=== PATIENT | female | born 1985 | race Caucasian/White ===

== ENCOUNTER 2020-04-11 14:48 | Outpatient (REF) | payer BC, SELFPAY ==
--- NOTE | 2020-04-11 15:06 | US_ITS ---
EXAMINATION: US PELVIS COMPLETE CLINICAL INFORMATION: Pelvic and perineal pain. COMPARISON: Pelvic ultrasound 04/23/2017. TECHNIQUE: Transabdominal and transvaginal ultrasound of the pelvis is performed. FINDINGS: The uterus is retroverted and retroflexed measuring 8.2 cm in length, 4.1 cm AP and 6.6 cm in transverse dimension. No focal lesion is seen. Endometrial thickness is 0.3 cm. There is hyperechoic debris seen within the endometrial canal, likely from recent menses. Right ovary measures 2.8 x 2 1.8 x 2.0 cm and volume 10.7 mL. There are small anechoic follicles visualized with a dominant follicle measuring 1.8 x 1.5 cm. Previously right ovary measured 3.0 x 1.4 x 2.3 cm and volume 5.0 mL Left ovary measures 5.1 x 2.0 x 3.0 cm and volume 16.0 mL. There are several small follicles seen. Previously left ovary measured 2.8 x 1.4 x 2.2 cm and volume 4.3 mL. There are prominent uterine vessels seen within bilateral adnexa, likely mild pelvic congestion. There is no free fluid in the cul-de-sac. US/US transvaginal IMPRESSION: Bilateral smaller ovarian follicles with a dominant follicle right ovary. Hyperechoic debris within the endometrial canal, likely from recent menses. The uterus is otherwise unremarkable. Suspect mild pelvic venous congestion.
--- NOTE | 2020-04-11 15:06 | US_ITS ---
EXAMINATION: US PELVIS COMPLETE CLINICAL INFORMATION: Pelvic and perineal pain. COMPARISON: Pelvic ultrasound 04/23/2017. TECHNIQUE: Transabdominal and transvaginal ultrasound of the pelvis is performed. FINDINGS: The uterus is retroverted and retroflexed measuring 8.2 cm in length, 4.1 cm AP and 6.6 cm in transverse dimension. No focal lesion is seen. Endometrial thickness is 0.3 cm. There is hyperechoic debris seen within the endometrial canal, likely from recent menses. Right ovary measures 2.8 x 2 1.8 x 2.0 cm and volume 10.7 mL. There are small anechoic follicles visualized with a dominant follicle measuring 1.8 x 1.5 cm. Previously right ovary measured 3.0 x 1.4 x 2.3 cm and volume 5.0 mL Left ovary measures 5.1 x 2.0 x 3.0 cm and volume 16.0 mL. There are several small follicles seen. Previously left ovary measured 2.8 x 1.4 x 2.2 cm and volume 4.3 mL. There are prominent uterine vessels seen within bilateral adnexa, likely mild pelvic congestion. There is no free fluid in the cul-de-sac. US/US pelvic complete IMPRESSION: Bilateral smaller ovarian follicles with a dominant follicle right ovary. Hyperechoic debris within the endometrial canal, likely from recent menses. The uterus is otherwise unremarkable. Suspect mild pelvic venous congestion.
== END 2020-04-11 14:49 | disposition home or self-care (01) ==
LOC: HO.US 14:48
PROVIDERS: PCP Family Medicine; Visit Provider Advanced Practice Midwife
DX: R10.2 Pelvic and perineal pain (principal)
CPT/HCPCS: 76830; 76856

== ENCOUNTER 2020-09-01 19:10 | Emergency (ER) | payer OTHER, MEDICAID, SELFPAY ==
--- NOTE | ~2020-09-01 | US_ITS ---
EXAMINATION: US OBSTETRICAL ULTRASOUND CLINICAL INFORMATION: 12 weeks with vaginal bleeding COMPARISON: Pelvic ultrasound 04/11/2020. No recent ultrasound available. TECHNIQUE: Ultrasound was performed with both transabdominal endovaginal scanning. FINDINGS: A gestational sac is present within the uterus and a pole is identified with a crown-rump of 0.84 cm which corresponds to a gestational age of 6 weeks and 6 days with an SHAYNE of 04/21/2021. Based upon an early ultrasound performed at another institution (I do not have that study) gestational age would be 12 weeks 1 day. No motion was seen and no heart rate was detected. Cystic areas are present in this subchorionic region. The right ovary measures 2.8 x 1.5 x 2.0 cm and appears unremarkable. Left ovary measures 2.7 x 2.0 x 1.9 cm and appears unremarkable. No free fluid is present in the cul-de-sac US/US OB transvaginal IMPRESSION: A gestational sac is seen with a motionless small pole visible with no heartbeat detected. Subchorionic hemorrhage also appears to be present. This is probably intrauterine demise.
--- NOTE | ~2020-09-01 | US_ITS ---
EXAMINATION: US OBSTETRICAL ULTRASOUND CLINICAL INFORMATION: 12 weeks with vaginal bleeding COMPARISON: Pelvic ultrasound 04/11/2020. No recent ultrasound available. TECHNIQUE: Ultrasound was performed with both transabdominal endovaginal scanning. FINDINGS: A gestational sac is present within the uterus and a pole is identified with a crown-rump of 0.84 cm which corresponds to a gestational age of 6 weeks and 6 days with an SHAYNE of 04/21/2021. Based upon an early ultrasound performed at another institution (I do not have that study) gestational age would be 12 weeks 1 day. No motion was seen and no heart rate was detected. Cystic areas are present in this subchorionic region. The right ovary measures 2.8 x 1.5 x 2.0 cm and appears unremarkable. Left ovary measures 2.7 x 2.0 x 1.9 cm and appears unremarkable. No free fluid is present in the cul-de-sac US/US OB <= 14 weeks fetus IMPRESSION: A gestational sac is seen with a motionless small pole visible with no heartbeat detected. Subchorionic hemorrhage also appears to be present. This is probably intrauterine demise.
[2020-09-01 19:13] VITALS: BP 121/67; PULSE 90; RESP 18; TEMP 36.8; O2SAT 100; BMI 26.9
[2020-09-01 19:47] LABS: UPreg QC Valid YES; Urine Pregnancy POSITIVE (NEGATIVE)
[2020-09-01 19:48] LABS: Appearance Urine CLEAR; Color Urine YELLOW; Glucose Urine UA NEG (NEG); Leukocyte Esterase Urine NEG (NEG); Nitrite Urine NEG (NEG); Urine Blood NEG (NEG); Urine Ketones NEG (NEG); Urine Protein NEG (NEG-TRACE)
[2020-09-01 20:29] LABS: MANUAL DIFF FLAG NO
[2020-09-01 20:35] LABS: Basophils Percent Auto 0.4 % (0-2); Eosinophils Absolute Auto 0.1 X10*3/uL (0.0-0.4); Eosinophils Percent Auto 1.8 % (0-4); Hematocrit 36.3 % (37-47); Hemoglobin 12.3 g/dl (12.0-16.0); Imm Gran Abs Auto 0.04 X10*3/uL (0.00-0.03); Imm Gran Pct Auto 0.6 % (0.0-0.4); Lymphocytes Absolute Auto 2.1 X10*3/uL (1.2-4.9); Lymphocytes Percent Auto 28.5 % (20-40); Mean Corpuscular HGB Conc 33.9 g/dl (31.0-35.0); Mean Corpuscular Hemoglobin 28.6 pg (27.0-33.0); Mean Corpuscular Volume 84.4 fL (80-98); Mean Platelet Volume 9.8 fL (9.4-12.3); Monocytes Absolute Auto 0.4 X10*3/uL (0.1-1.2); Monocytes Percent Auto 6.1 % (2-11); Neutrophils Absolute Auto 4.5 X10*3/uL (2.0-8.3); Neutrophils Percent Auto 62.6 % (45-73); Platelet Count 244 X10*3/uL (160-400); Red Cell Distribution Width 12.6 % (11.0-16.0); White Blood Count 7.2 X10*3/uL (4.8-10.8)
[2020-09-01 20:54] LABS: Alanine Aminotransferase 30 U/L (0-31); Albumin Level 4.4 g/dL (3.5-5.0); Alkaline Phosphatase 52 U/L (39-117); Anion Gap 12 (12-20); Aspartate Amino Transferase 17 U/L (5-31); Bilirubin Total 0.4 mg/dL (0.0-1.0); Blood Urea Nitrogen 9 mg/dL (9-16); Calcium 9.1 mg/dL (8.4-10.2); Carbon Dioxide 25 mmol/L (22-29); Chloride 105 mmol/L (96-108); Creatinine Clr Calc Pharmacy 109.6; Estimated Glomerular Filt Rate > 60; Glucose Random 94 mg/dL (60-115); Potassium 4.1 mmol/L (3.3-5.1); Sodium 138 mmol/L (135-145); Total Protein 7.1 g/dL (6.5-8.0)
[2020-09-01 21:01] LABS: HCG Quantitative 12459 mIU/mL
--- NOTE | 2020-09-01 21:54 | ED.PREGNANCY ---
HPI - General Chief complaint: Vaginal Bleeding Stated complaint: Vaginal bleeding/3 months preg Time Seen by Provider: 09/01/20 21:42 Source: patient Mode of arrival: ambulatory Limitations: no limitations History of Present Illness HPI Narrative: 35-year-old female approximately 6 weeks presents with sudden onset of abdominal cramping and vaginal bleeding. Does not describe any trauma, or abuse. States that she did have sexual intercourse yesterday without any pain or complication. She does not describe any fevers, chills, chest pain or pressure, palpitations, abdominal distention, dysuria, hematuria, or edema. MD Complaint: abdominal pain and vaginal bleeding Onset (ago): hour(s) (Several hours prior to arrival) Pain Consistency: intermittent and now resolved Location: abdomen Severity: moderate Severity scale (1-10): 6 Quality: Cramping Associated symptoms: vaginal bleeding and vaginal discharge Vaginal discharge: cloudy Vaginal bleeding: light Patient : Yes care: followed by OB Related Data Previous Rx's Medication Instructions Recorded lorazepam [Ativan] 0.5 mg PO TID PRN #10 tab 09/02/20 Allergies Allergy/AdvReac Type Severity Reaction Status Date / Time No Known Allergies Allergy Verified 09/01/20 19:13 Review of Systems Review of Systems: Constitutional: No Fever, No Chills ENT/Mouth: No sore throat, No Rhinorrhea Eyes: No Eye Pain, No Redness Cardiovascular: No Chest Pain, No SOB Respiratory: No Cough, No Sputum, No Wheezing Gastrointestinal: No Nausea, No Vomiting, No Diarrhea, positive abdominal pain Genitourinary: Positive 1st trimester, positive irregular bleeding, No Dysuria, No Urinary Frequency, positive pelvic pain Musculoskeletal: No Myalgias Skin: No rash Neuro: No Weakness, No Headache Psych: No Anxiety/Panic, No Depression Heme/Lymph: No bruising, No Lymphadenopathy Endocrine: No Polyuria, No Polydipsia Yes all other systems are reviewed and are negative PMFSH Past Medical History Attestation statement: The following information was validated with the patient. Source: old records reviewed Physical Exam Vital Signs: Vital Signs: Last Vital Signs Temp 98.2 F 09/02/20 00:00 Pulse 80 09/02/20 00:00 Resp 18 09/02/20 00:00 BP 130/70 09/02/20 00:00 Pulse Ox 98 09/02/20 00:00 Body Mass Index 26.9 Appearance: Alert. Oriented X3. Moderate distress. Eyes: Pupils equal, round and reactive to light. ENT: Pharynx normal. Neck: Normal inspection. Neck supple. CVS: Normal heart rate and rhythm. Pulses normal. Respiratory: No respiratory distress. Breath sounds normal. Abdomen: Soft and nontender. No palpable fundus Skin: Skin warm and dry. Normal skin color. Normal skin turgor. Extremities: No lower extremity edema. Moves all extremities against resistance Neuro: No motor deficit. No sensory deficit. Cranial nerves 2-12 intact no focal neural deficit : General: Yes Bimanual renal exam normal bilaterally External Female Exam: normal external appearance and normal appearance of the urethra Speculum Exam - Vagina: normal appearance of the vagina, normal palpation and abnormal vaginal discharge white and bloody Speculum Exam - Cervix: normal appearance of the cervix, normal palpation and Cervical os closed (Scant amount of bleeding from cervical os) Bimanual exam- vagina & uterus: normal bimanual exam, normal palpation and normal palpation Bimanual Exam- Adnexa, other: normal adnexae and No adnexal tenderness Course Course Course Narrative: 35-year-old female approximately 6 weeks presents with several hours of vaginal bleeding, with white discharge and cramping. Will order CBC, Chem 7, AB0, urinalysis, hCG quant, and transvaginal ultrasound. Labs are unremarkable, beta quant 12,400, AB0 is pending. Pelvic ultrasound shows indication of demise. Discussion with Dr Camacho via [employer] text. Plan of care is for patient to follow-up in the office on Thursday for further care. Patient is not septic, has no cervical motion tenderness, no indication of abscess or fluid pockets in the pelvis. Significant emotional support provided for patient by this SENIOR ART DIRECTOR and RN. Patient O positive. RhoGAM not indicated. She does understand that if she would have any excessive vaginal bleeding, fevers, chills that she must follow-up with [facility] emergently. We do not have physicians on-call or access for emergent D and C. Will discharge home with [facility] and follow-up with Dr Camacho on Thursday morning. Patient verbalized understanding of and agrees plan of care discharge home. Consultations Consultation #1: Doug Time: 23:34 MDM - OB/Uterine Contractions Medical Records Attestation: I reviewed the patient's medical records. Lab Data Attestation: I reviewed the patient's lab results. Result diagrams: 09/01/20 20:25 09/01/20 20:25 Labs: Lab Results 09/01/20 09/01/20 09/01/20 Range/Units 19:24 19:24 20:25 WBC 7.2 (4.8-10.8) X10*3/uL RBC 4.30 (4.20-5.50) X10*6/uL Hgb 12.3 (12.0-16.0) g/dl Hct 36.3 L (37-47) % MCV 84.4 (80-98) fL MCH 28.6 (27.0-33.0) pg MCHC 33.9 (31.0-35.0) g/dl RDW 12.6 (11.0-16.0) % Plt Count 244 (160-400) X10*3/uL MPV 9.8 (9.4-12.3) fL Immature Gran % (Auto) 0.6 H (0.0-0.4) % Neut % (Auto) 62.6 (45-73) % Lymph % (Auto) 28.5 (20-40) % [place] % (Auto) 6.1 (2-11) % Eos % (Auto) 1.8 (0-4) % Baso % (Auto) 0.4 (0-2) % Lymph # (Auto) 2.1 (1.2-4.9) X10*3/uL [place] # (Auto) 0.4 (0.1-1.2) X10*3/uL Eos # (Auto) 0.1 (0.0-0.4) X10*3/uL Baso # (Auto) 0.0 (0.0-0.2) X10*3/uL Abs Immat Gran (auto) 0.04 H (0.00-0.03) X10*3/uL Absolute Neuts (auto) 4.5 (2.0-8.3) X10*3/uL Absolute Nucleated RBC 0.000 (0.0-0.012) X10*3/uL Nucleated RBC % (auto) 0.0 (0.0-0.2) /100WBC Hold Blue Top Sodium (135-145) mmol/L Potassium (3.3-5.1) mmol/L Chloride (96-108) mmol/L Carbon Dioxide (22-29) mmol/L Anion Gap (12-20) BUN (9-16) mg/dL Creatinine (0.5-1.4) mg/dL Estim Creat Clear Calc Estimated GFR Random Glucose (60-115) mg/dL Calcium (8.4-10.2) mg/dL Total Bilirubin (0.0-1.0) mg/dL AST (5-31) U/L ALT (0-31) U/L Alkaline Phosphatase (39-117) U/L Total Protein (6.5-8.0) g/dL Albumin (3.5-5.0) g/dL Beta HCG, Quant mIU/mL Urine Color YELLOW Urine Appearance CLEAR Urine pH 6.0 (5.0-8.0) Ur Specific [place] 1.010 (1.005-1.025) Urine Protein NEG (NEG-TRACE) MG/DL Urine Glucose (UA) NEG (NEG) MG/DL Urine Ketones NEG (NEG) MG/DL Urine Blood NEG (NEG) Urine Nitrite NEG (NEG) Ur Leukocyte Esterase NEG (NEG) Urine Test POSITIVE H (NEGATIVE) Blood Type 09/01/20 09/01/20 09/01/20 Range/Units 20:25 20:25 20:25 WBC (4.8-10.8) X10*3/uL RBC (4.20-5.50) X10*6/uL Hgb (12.0-16.0) g/dl Hct (37-47) % MCV (80-98) fL MCH (27.0-33.0) pg MCHC (31.0-35.0) g/dl RDW (11.0-16.0) % Plt Count (160-400) X10*3/uL MPV (9.4-12.3) fL Immature Gran % (Auto) (0.0-0.4) % Neut % (Auto) (45-73) % Lymph % (Auto) (20-40) % [place] % (Auto) (2-11) % Eos % (Auto) (0-4) % Baso % (Auto) (0-2) % Lymph # (Auto) (1.2-4.9) X10*3/uL [place] # (Auto) (0.1-1.2) X10*3/uL Eos # (Auto) (0.0-0.4) X10*3/uL Baso # (Auto) (0.0-0.2) X10*3/uL Abs Immat Gran (auto) (0.00-0.03) X10*3/uL Absolute Neuts (auto) (2.0-8.3) X10*3/uL Absolute Nucleated RBC (0.0-0.012) X10*3/uL Nucleated RBC % (auto) (0.0-0.2) /100WBC Hold Blue Top SEE NOTE Sodium 138 (135-145) mmol/L Potassium 4.1 (3.3-5.1) mmol/L Chloride 105 (96-108) mmol/L Carbon Dioxide 25 (22-29) mmol/L Anion Gap 12 (12-20) BUN 9 (9-16) mg/dL Creatinine 0.70 (0.5-1.4) mg/dL Estim Creat Clear Calc 109.6 Estimated GFR > 60 Random Glucose 94 (60-115) mg/dL Calcium 9.1 (8.4-10.2) mg/dL Total Bilirubin 0.4 (0.0-1.0) mg/dL AST 17 (5-31) U/L ALT 30 (0-31) U/L Alkaline Phosphatase 52 (39-117) U/L Total Protein 7.1 (6.5-8.0) g/dL Albumin 4.4 (3.5-5.0) g/dL Beta HCG, Quant 29603 mIU/mL Urine Color Urine Appearance Urine pH (5.0-8.0) Ur Specific [place] (1.005-1.025) Urine Protein (NEG-TRACE) MG/DL Urine Glucose (UA) (NEG) MG/DL Urine Ketones (NEG) MG/DL Urine Blood (NEG) Urine Nitrite (NEG) Ur Leukocyte Esterase (NEG) Urine Test (NEGATIVE) Blood Type 09/01/20 Range/Units 23:50 WBC (4.8-10.8) X10*3/uL RBC (4.20-5.50) X10*6/uL Hgb (12.0-16.0) g/dl Hct (37-47) % MCV (80-98) fL MCH (27.0-33.0) pg MCHC (31.0-35.0) g/dl RDW (11.0-16.0) % Plt Count (160-400) X10*3/uL MPV (9.4-12.3) fL Immature Gran % (Auto) (0.0-0.4) % Neut % (Auto) (45-73) % Lymph % (Auto) (20-40) % [place] % (Auto) (2-11) % Eos % (Auto) (0-4) % Baso % (Auto) (0-2) % Lymph # (Auto) (1.2-4.9) X10*3/uL [place] # (Auto) (0.1-1.2) X10*3/uL Eos # (Auto) (0.0-0.4) X10*3/uL Baso # (Auto) (0.0-0.2) X10*3/uL Abs Immat Gran (auto) (0.00-0.03) X10*3/uL Absolute Neuts (auto) (2.0-8.3) X10*3/uL Absolute Nucleated RBC (0.0-0.012) X10*3/uL Nucleated RBC % (auto) (0.0-0.2) /100WBC Hold Blue Top Sodium (135-145) mmol/L Potassium (3.3-5.1) mmol/L Chloride (96-108) mmol/L Carbon Dioxide (22-29) mmol/L Anion Gap (12-20) BUN (9-16) mg/dL Creatinine (0.5-1.4) mg/dL Estim Creat Clear Calc Estimated GFR Random Glucose (60-115) mg/dL Calcium (8.4-10.2) mg/dL Total Bilirubin (0.0-1.0) mg/dL AST (5-31) U/L ALT (0-31) U/L Alkaline Phosphatase (39-117) U/L Total Protein (6.5-8.0) g/dL Albumin (3.5-5.0) g/dL Beta HCG, Quant mIU/mL Urine Color Urine Appearance Urine pH (5.0-8.0) Ur Specific [place] (1.005-1.025) Urine Protein (NEG-TRACE) MG/DL Urine Glucose (UA) (NEG) MG/DL Urine Ketones (NEG) MG/DL Urine Blood (NEG) Urine Nitrite (NEG) Ur Leukocyte Esterase (NEG) Urine Test (NEGATIVE) Blood Type O Positive Imaging Data Ob transvaginal ultrasound: Attestation: I personally reviewed and interpreted this imaging study as follows: Radiologist's impression: EXAMINATION: US OBSTETRICAL ULTRASOUND CLINICAL INFORMATION: 12 weeks with vaginal bleeding COMPARISON: Pelvic ultrasound 04/11/2020. No recent ultrasound available. TECHNIQUE: Ultrasound was performed with both transabdominal endovaginal scanning. FINDINGS: A gestational sac is present within the uterus and a pole is identified with a crown-rump of 0.84 cm which corresponds to a gestational age of 6 weeks and 6 days with an SHAYNE of 04/21/2021. Based upon an early ultrasound performed at another institution (I do not have that study) gestational age would be 12 weeks 1 day. No motion was seen and no heart rate was detected. Cystic areas are present in this subchorionic region. The right ovary measures 2.8 x 1.5 x 2.0 cm and appears unremarkable. Left ovary measures 2.7 x 2.0 x 1.9 cm and appears unremarkable. No free fluid is present in the cul-de-sac US/US OB <= 14 weeks fetus IMPRESSION: A gestational sac is seen with a motionless small pole visible with no heartbeat detected. Subchorionic hemorrhage also appears to be present. This is probably intrauterine demise. Discharge Plan Discharge Clinical Impression: Incomplete miscarriage Patient Disposition: Home, Self-Care Instructions: Miscarriage (ED) Additional Instructions: Se le evalu? para detectar sangrado vaginal michael el primer trimestre del embarazo. La ecograf?a p?lvica muestra un saco gestacional sin latidos card?acos. [place] significa que has abortado. Debe hacer un seguimiento con galdamez OBGYN para obtener m?s atenci?n. Por favor llame y robbie erick jared el lunes. Habl? de galdamez mely con nuestro obeggyn de dejuan Dr Camacho. Si presenta fiebres, escalofr?os, dolor abdominal intenso, sangrado vaginal excesivo, vaya al servicio de urgencias [facility]. No tenemos el equipo o la capacidad de realizar el procedimiento que usted necesitar?a. Le recet? a Ativan ansiedad. No conduzca ni opere maquinaria mientras tome kiran medicamento. No mezcle kiran medicamento con alcohol. Anshul por elegir kiran departamento de emergencias para galdamez evaluaci?n. Por favor, robbie un seguimiento con el m?dico de atenci?n primaria seg?n sea necesario. Regrese al servicio de emergencias para cualquier s?ntoma nuevo, preocupante o que empeore. You were evaluated for vaginal bleeding during the 1st trimester of . Your pelvic ultrasound shows a gestational sac without a heartbeat. This means that you have miscarried. You must follow-up with your OBGYN for further care. Please call and make an appointment on Thursday. I did discuss your case with our on-call OBGYN Dr Camacho. Please follow up with Him in the office on Thursday. If you develop fevers, chills, severe abdominal pain, excessive vaginal bleeding please go to the emergency department at [facility]. We do not have the equipment or ability to perform the procedure that you would need. I prescribed Ativan for anxiety. Do not drive or operate machinery while taking this medication. Do not mix this medication with alcohol. Thank you for choosing this emergency department for evaluation. Please follow-up with primary care physician as needed. Return to the emergency department for any new, concerning, or worsening symptoms. Prescriptions: New lorazepam [Ativan] 0.5 mg tablet 0.5 mg PO TID PRN (Reason: anxiety) Qty: 10 RF: 0 Referrals: Yuriy Camacho MD [Physician] - 2 days (Miscarriage) Stand Alone Forms: Work/School Release Interventions: ED Discharge Assessment Last Done: 09/02/20 00:59 Discharge Date/Time: 09/02/20 00:59
[2020-09-02] VITALS: BP 130/70; PULSE 80; RESP 18; TEMP 36.8; O2SAT 98
--- NOTE | 2020-09-02 00:02 | PM.GYNCN ---
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 HCG quant is 12,459, Rh pending. Ultrasound showed gestational sac present within the uterus with pole CRL of 8.4 mm corresponding to a gestational age of 6 weeks and 6 days. No heart rate identified and a subchorionic hemorrhage present, probably intrauterine demise cc:: CC: OB [facility] Social History Social History Advance Directives: No Advance Directives Information Provided: No Meds Allergies Allergy/AdvReac Type Severity Reaction Status Date / Time No Known Allergies Allergy Verified 09/01/20 19:13 VENDING MACHINE COIN COLLECTOR Physical Exam Vitals Vital signs: Temp Pulse Resp BP Pulse Ox 98.2 F 90 18 121/67 100 09/01/20 19:13 09/01/20 19:13 09/01/20 19:13 09/01/20 19:13 09/01/20 19:13 Body Mass Index 26.9 VENDING MACHINE COIN COLLECTOR - Results Labs CBC & Chem 7: 09/01/20 20:25 09/01/20 20:25 Labs: Short CBC 09/01/20 Range/Units 20:25 WBC 7.2 (4.8-10.8) X10*3/uL Hgb 12.3 (12.0-16.0) g/dl Hct 36.3 L (37-47) % Plt Count 244 (160-400) X10*3/uL BMP 09/01/20 20:25 Sodium 138 Potassium 4.1 Chloride 105 Carbon Dioxide 25 BUN 9 Creatinine 0.70 Calcium 9.1 Liver Function 09/01/20 Range/Units 20:25 Total Bilirubin 0.4 (0.0-1.0) mg/dL AST 17 (5-31) U/L ALT 30 (0-31) U/L Alkaline Phosphatase 52 (39-117) U/L Albumin 4.4 (3.5-5.0) g/dL Urine 09/01/20 09/01/20 Range/Units 19:24 19:24 Urine Color YELLOW Urine Appearance CLEAR Urine pH 6.0 (5.0-8.0) Ur Specific [place] 1.010 (1.005-1.025) Urine Protein NEG (NEG-TRACE) MG/DL Urine Glucose (UA) NEG (NEG) MG/DL Urine Test POSITIVE H (NEGATIVE) Assessment and Plan (1) Early stage of : Status: Acute Discussed the case with Renuka Alexander , possible missed A/B. Recommended repeat hCG in 48 hours and follow-up in outpatient, instructions to be given to patient to call or come back to the emergency room if bleeding persists or gets heavier otherwise follow-up in the office in 48 hours. Pelvic exam to be performed if there is no evidence of heavy bleeding, the patient could be discharged with outpatient follow-up and above instructions. Check Rh status if negative , RhoGAM 300 mcg IM to be given.
[2020-09-02] MEDS: LORazepam 1 MG TABLET 0.5 MG PO (00:49)
[2020-09-02] MEDS: Ibuprofen 600 MG TABLET PO (00:49)
--- NOTE | 2020-09-02 00:54 | PC.NURSE ---
Pelvic exam completed at the bedside by Renuka Alexander NP with this RN at the bedside. Discussed ultrasound and lab results with patient. Pt is O+ blood type, no rhogam necessary. Pt is experiencing an incomplete miscarriage. Miscarriage packet & bag given and discussed. Pt's at the bedside, providing support. Discussed signs/symptoms of infections with patient who verbalized understanding. Plan for discharge.
== END 2020-09-02 00:59 | disposition home or self-care (01) ==
PROVIDERS: Emergency Provider Emergency Medicine; PCP Family Medicine
DX: O03.4 Incomplete spontaneous abortion without complication (principal)
CPT/HCPCS: 36415; 76801; 76817; 80053; 81003; 81025; 84702; 85025; 86900; 86901; 99282; 99284

== ENCOUNTER 2021-05-28 18:55 | Emergency (ER) | payer OTHER, MEDICAID, SELFPAY ==
--- NOTE | ~2021-05-28 | US_ITS ---
Indication: Evaluate for amniotic fluid EXAMINATION: Obstetrical ultrasound Limited. Findings; There is a single live intrauterine . The crown-rump length is 7.1 cm. Correlates to 13 weeks 2 days. The placenta is reported anterior but appears fundal to posterior on the imaging submitted. Attention to follow-up. 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 Placenta does appear to be away from the os. Attention to follow-up heart rate 156 bpm. No suspicious fluid collection is seen here. The right ovary is 2.9 x 2.2 x 2.5 cm. Within normal limits. The left ovary is 3 x 1.8 x 3.3 cm.. Within normal limits. No free fluid or obvious adnexal mass. Ovarian tissue is felt to be within normal limits. US/US OB limited impression: Single live intrauterine . 13 weeks 2 days by ultrasound criteria. There is no suspicious fluid collection. No evidence of fluid in the cervical canal on the imaging submitted. Recommend follow-up scan for dating
[2021-05-28 19:25] VITALS: BP 110/65; PULSE 87; RESP 16; TEMP 36.6; O2SAT 99; BMI 29.3
[2021-05-28 19:42] LABS: MANUAL DIFF FLAG NO
[2021-05-28 19:43] LABS: Basophils Percent Auto 0.3 % (0-2); Eosinophils Absolute Auto 0.2 X10*3/uL (0.0-0.4); Eosinophils Percent Auto 2.3 % (0-4); Hematocrit 33.3 % (37.0-47.0); Hemoglobin 11.5 g/dl (12.0-16.0); Imm Gran Abs Auto 0.06 X10*3/uL (0.00-0.03); Imm Gran Pct Auto 0.8 % (0.0-0.4); Lymphocytes Absolute Auto 1.9 X10*3/uL (1.2-4.9); Lymphocytes Percent Auto 25.7 % (20-40); Mean Corpuscular HGB Conc 34.5 g/dl (31.0-35.0); Mean Corpuscular Hemoglobin 29.2 pg (27.0-33.0); Mean Corpuscular Volume 84.5 fL (80.0-98.0); Mean Platelet Volume 10.6 fL (9.4-12.3); Monocytes Absolute Auto 0.5 X10*3/uL (0.1-1.2); Monocytes Percent Auto 6.2 % (2-11); Neutrophils Absolute Auto 4.7 x10*3/uL (2.0-8.3); Neutrophils Percent Auto 64.7 % (45-73); Platelet Count 230 X10*3/uL (160-400); Red Blood Count 3.94 X10*6/uL (4.20-5.50); Red Cell Distribution Width 12.8 % (11.0-16.0); White Blood Count 7.3 X10*3/uL (4.8-10.8)
[2021-05-28 20:00] VITALS: BP 130/64; PULSE 65; RESP 16
[2021-05-28 20:01] LABS: Alanine Aminotransferase 19 U/L (0-31); Albumin Level 3.7 g/dL (3.5-5.0); Alkaline Phosphatase 45 U/L (39-117); Anion Gap 11 (12-20); Aspartate Amino Transferase 18 U/L (5-31); Bilirubin Total 0.3 mg/dL (0.0-1.0); Blood Urea Nitrogen 13 mg/dL (9-16); Calcium 9.4 mg/dL (8.4-10.2); Carbon Dioxide 21 mmol/L (22-29); Chloride 110 mmol/L (96-108); Estimated Glomerular Filt Rate > 60; Glucose Random 85 mg/dL (60-115); Potassium 4.1 mmol/L (3.3-5.1); Sodium 138 mmol/L (135-145); Total Protein 6.6 g/dL (6.5-8.0)
--- NOTE | 2021-05-28 20:12 | ED.PREGNANCY ---
HPI - General Chief complaint: OB Stated complaint: Vaginal discharge/13 Weeks preg Time Seen by Provider: 05/28/21 20:04 Source: patient Mode of arrival: ambulatory Limitations: no limitations History of Present Illness HPI Narrative: Patient comes to the emergency room complaining of possible amniotic fluid leakage. Patient is a A2 at 13 weeks of gestational age. Patient known to be O positive. Patient states that earlier this afternoon, patient had just finished urinating. Patient stood up and was about to get into the shower when she had a large amount of fluid gushing from the vaginal canal. Patient states that she did not see any blood. Patient called her OBGYN and she was told that it is likely normal vaginal discharge. However, patient got concerned about the amount of fluid that gushed out. Patient complaining of lower back pain, mild lower abdominal cramping. Denies vaginal bleeding or spotting. Related Data Previous Rx's Medication Instructions Recorded lorazepam 0.5 mg tablet (Ativan) 0.5 mg PO TID PRN #10 tab 09/02/20 Allergies Allergy/AdvReac Type Severity Reaction Status Date / Time No Known Allergies Allergy Verified 05/28/21 19:31 Review of Systems Review of Systems: Constitutional : No Weight loss, No Fever, No Chills, No Night Sweats, No Fatigue, No Malaise ENT/Mouth : No Hearing loss, No Ear Pain, No Nasal Congestion, No Sinus Pain, No Hoarseness, No sore throat, No Rhinorrhea, No Swallowing Difficulty Eyes: No Eye Pain, No Swelling, No Redness, No Foreign Body, No Discharge, No Vision Changes Cardiovascular : No Chest Pain, No SOB, No Dyspnea on Exertion, No Orthopnea, No Edema, No Palpitations Respiratory : No Cough, No Sputum, No Wheezing, No Smoke Exposure, No Dyspnea Gastrointestinal : No Nausea, No Vomiting, No Diarrhea, No Constipation, No abdominal Pain, No Hematochezia, No Melena Genitourinary : Complaining large amount of vaginal fluid leakage, no irregular bleeding, No Dysuria, No Urinary Frequency, No Hematuria, No Urinary Incontinence, No Urgency, No Flank Pain, No Urinary Flow Changes, No Hesitancy Musculoskeletal : No joint pain, No Myalgias, No Joint Swelling Skin : No Skin Lesions, No rash Neuro : No Weakness, No Numbness, No Paresthesias, No Loss of Consciousness, No Dizziness, No Headache Psych : No Anxiety/Panic, No Depression, No SI/HI/AH/VH, No Social Issues, Heme/Lymph: No Bruising, No Bleeding,No Lymphadenopathy Endocrine : No Polyuria, No Polydipsia, No Temperature Intolerance PMF Past Medical History Medical History No known health problems Social History Social History Advance Directives: No Advance Directives Information Provided: Yes Patient : Yes Physical Exam Vital Signs: Vital Signs: Last Vital Signs Temp 97.9 F 05/28/21 19:25 Pulse 65 05/28/21 20:00 Resp 16 05/28/21 20:00 BP 130/64 05/28/21 20:00 Pulse Ox 99 05/28/21 19:25 BMI result Body Mass Index 29.3 Const: Other: Appearance: Alert. Oriented X3. No acute distress. Eyes: Pupils equal, round and reactive to light. ENT: Pharynx normal. Neck: Normal inspection. Neck supple. No lymph nodes noted. No crepitus CVS: Normal heart rate and rhythm. Pulses normal. Normal S1 and S2 Respiratory: No respiratory distress. Breath sounds normal. No Wheezing. No rales Abdomen: Soft and nontender. No rigidity. No distention. : pt declined Skin: Skin warm and dry. Normal skin color. Normal skin turgor. Extremities: No lower extremity edema. No Lacerations. No Rash Neuro: Oriented X 3. No motor deficit. No sensory deficit. Moving all extermities. No slurred speech. Course Course Course Narrative: I discussed the ultrasound findings with the patient, no acute findings. Viable at this time. As mentioned above in the physical exam, patient declined a pelvic exam. It is unknown if the patient's cervix is open or close. Patient will follow-up with her primary care physician. Patient no longer cramping. MDM - OB/Uterine Contractions Lab Data Result diagrams: 05/28/21 19:34 05/28/21 19:34 Labs: Lab Results 05/28/21 05/28/21 05/28/21 Range/Units 19:34 19:34 19:34 WBC 7.3 (4.8-10.8) X10*3/uL RBC 3.94 L (4.20-5.50) X10*6/uL Hgb 11.5 L (12.0-16.0) g/dl Hct 33.3 L (37.0-47.0) % MCV 84.5 (80.0-98.0) fL MCH 29.2 (27.0-33.0) pg MCHC 34.5 (31.0-35.0) g/dl RDW 12.8 (11.0-16.0) % Plt Count 230 (160-400) X10*3/uL MPV 10.6 (9.4-12.3) fL Immature Gran % (Auto) 0.8 H (0.0-0.4) % Neut % (Auto) 64.7 (45-73) % Lymph % (Auto) 25.7 (20-40) % [place] % (Auto) 6.2 (2-11) % Eos % (Auto) 2.3 (0-4) % Baso % (Auto) 0.3 (0-2) % Lymph # (Auto) 1.9 (1.2-4.9) X10*3/uL [place] # (Auto) 0.5 (0.1-1.2) X10*3/uL Eos # (Auto) 0.2 (0.0-0.4) X10*3/uL Baso # (Auto) 0.0 (0.0-0.2) X10*3/uL Abs Immat Gran (auto) 0.06 H (0.00-0.03) X10*3/uL Absolute Neuts (auto) 4.7 (2.0-8.3) x10*3/uL Absolute Nucleated RBC 0.000 (0.0-0.012) X10*3/uL Nucleated RBC % (auto) 0.0 (0.0-0.2) /100WBC Sodium 138 (135-145) mmol/L Potassium 4.1 (3.3-5.1) mmol/L Chloride 110 H (96-108) mmol/L Carbon Dioxide 21 L (22-29) mmol/L Anion Gap 11 L (12-20) BUN 13 (9-16) mg/dL Creatinine 0.91 (0.5-1.4) mg/dL Estim Creat Clear Calc 87.0 Estimated GFR > 60 Random Glucose 85 (60-115) mg/dL Calcium 9.4 (8.4-10.2) mg/dL Total Bilirubin 0.3 (0.0-1.0) mg/dL AST 18 (5-31) U/L ALT 19 (0-31) U/L Alkaline Phosphatase 45 (39-117) U/L Total Protein 6.6 (6.5-8.0) g/dL Albumin 3.7 (3.5-5.0) g/dL Beta HCG, Quant 67267 mIU/mL Urine Color Urine Appearance Urine pH (5.0-8.0) Ur Specific [place] (1.005-1.025) Urine Protein (NEG-TRACE) MG/DL Urine Glucose (UA) (NEG) MG/DL Urine Ketones (NEG) MG/DL Urine Blood (NEG) Urine Nitrite (NEG) Ur Leukocyte Esterase (NEG) Blood Type O Positive 05/28/21 Range/Units 21:13 WBC (4.8-10.8) X10*3/uL RBC (4.20-5.50) X10*6/uL Hgb (12.0-16.0) g/dl Hct (37.0-47.0) % MCV (80.0-98.0) fL MCH (27.0-33.0) pg MCHC (31.0-35.0) g/dl RDW (11.0-16.0) % Plt Count (160-400) X10*3/uL MPV (9.4-12.3) fL Immature Gran % (Auto) (0.0-0.4) % Neut % (Auto) (45-73) % Lymph % (Auto) (20-40) % [place] % (Auto) (2-11) % Eos % (Auto) (0-4) % Baso % (Auto) (0-2) % Lymph # (Auto) (1.2-4.9) X10*3/uL [place] # (Auto) (0.1-1.2) X10*3/uL Eos # (Auto) (0.0-0.4) X10*3/uL Baso # (Auto) (0.0-0.2) X10*3/uL Abs Immat Gran (auto) (0.00-0.03) X10*3/uL Absolute Neuts (auto) (2.0-8.3) x10*3/uL Absolute Nucleated RBC (0.0-0.012) X10*3/uL Nucleated RBC % (auto) (0.0-0.2) /100WBC Sodium (135-145) mmol/L Potassium (3.3-5.1) mmol/L Chloride (96-108) mmol/L Carbon Dioxide (22-29) mmol/L Anion Gap (12-20) BUN (9-16) mg/dL Creatinine (0.5-1.4) mg/dL Estim Creat Clear Calc Estimated GFR Random Glucose (60-115) mg/dL Calcium (8.4-10.2) mg/dL Total Bilirubin (0.0-1.0) mg/dL AST (5-31) U/L ALT (0-31) U/L Alkaline Phosphatase (39-117) U/L Total Protein (6.5-8.0) g/dL Albumin (3.5-5.0) g/dL Beta HCG, Quant mIU/mL Urine Color YELLOW Urine Appearance CLEAR Urine pH 6.0 (5.0-8.0) Ur Specific [place] 1.025 (1.005-1.025) Urine Protein NEG (NEG-TRACE) MG/DL Urine Glucose (UA) NEG (NEG) MG/DL Urine Ketones 5 (NEG) MG/DL Urine Blood NEG (NEG) Urine Nitrite NEG (NEG) Ur Leukocyte Esterase NEG (NEG) Blood Type Imaging Data US - abdomen: Radiologist's impression: Findings; There is a single live intrauterine . The crown-rump length is 7.1 cm. Correlates to 13 weeks 2 days. The placenta is reported anterior but appears fundal to posterior on the imaging submitted. Attention to follow-up. The cervical length is not measured by the liner man. Placenta does appear to be away from the os. Attention to follow-up heart rate 156 bpm. No suspicious fluid collection is seen here. The right ovary is 2.9 x 2.2 x 2.5 cm. Within normal limits. The left ovary is 3 x 1.8 x 3.3 cm.. Within normal limits. No free fluid or obvious adnexal mass. Ovarian tissue is felt to be within normal limits. US/US OB limited impression: Single live intrauterine . 13 weeks 2 days by ultrasound criteria. There is no suspicious fluid collection. No evidence of fluid in the cervical canal on the imaging submitted. Recommend follow-up scan for dating ? Discharge Plan Discharge Clinical Impression: Abdominal cramping Patient Disposition: Home, Self-Care Instructions: Abdominal Pain in (ED) Additional Instructions: Please follow-up with your primary care physician and with your OBGYN tomorrow. If you have any worsening or new symptoms, please return to the emergency room or call 911 Prescriptions: No Action lorazepam [Ativan] 0.5 mg tablet 0.5 mg PO TID PRN (Reason: anxiety) Qty: 10 RF: 0
--- NOTE | 2021-05-28 20:42 | PC.NURSE ---
pt taken to ultra sound
[2021-05-28 21:18] LABS: Appearance Urine CLEAR; Color Urine YELLOW; Glucose Urine UA NEG (NEG); Leukocyte Esterase Urine NEG (NEG); Nitrite Urine NEG (NEG); Specific Gravity - Urine 1.025 (1.005-1.025); Urine Blood NEG (NEG); Urine Ketones 5 MG/DL (NEG); Urine Protein NEG (NEG-TRACE)
== END 2021-05-28 21:58 | disposition home or self-care (01) ==
PROVIDERS: Emergency Provider Emergency Medicine; PCP Family Medicine
DX: O26.891 Other specified pregnancy related conditions, first trimester (principal); R10.9 Unspecified abdominal pain; Z3A.13 13 weeks gestation of pregnancy
CPT/HCPCS: 36415; 76815; 80053; 81003; 84702; 85025; 86900; 86901; 99284